=== PATIENT | female | born 1990 | race Caucasian/White ===

== ENCOUNTER 2020-10-08 17:48 | Inpatient (IN) | payer BC ==
[~2020-10-08] VITALS: Ht 165.1 cm; Wt 77.1 kg
[~2020-10-08 17:48] MED LIST: COLACE 100MG C100 MG PO; DITROPAN 5 MG TA5 MG PO; IBUPROFEN600 MG PO
[2020-10-08 20:48] LABS: HEMOGLOBIN 12.3 gm/dl (12.3-15.3); RED BLOOD COUNT 3.8 M/UL (4.00-5.10); WHITE BLOOD COUNT 8.2 K/UL (4.5-11.0)
[2020-10-08] MEDS ORDERED: LABETALOL HCL100 MG PO (21:07)
[2020-10-08] MEDS ORDERED: IRON325 M1 PO (21:09)
[2020-10-09] MEDS ORDERED: DOCUSATE SODIU100 MG PO (05:04)
[2020-10-09] MEDS ORDERED: IBUPROFEN600 MG PO (05:04)
== END 2020-10-10 13:19 | disposition home or self-care (01) | DRG 807 ==
LOC: GENOP 17:48 → OB 19:45
PROVIDERS: ADMIT Obstetrics & Gynecology
PROC: 4A1HXCZ Monitoring of Products of Conception, Cardiac Rate, External Approach (ICD-10-PCS; 2020-10-08)
PROC: 10E0XZZ Delivery of Products of Conception, External Approach (ICD-10-PCS; principal; 2020-10-09)
DX: O13.4 Gestational [pregnancy-induced] hypertension without significant proteinuria, complicating childbirth (principal); Z37.0 Single live birth; O76 Abnormality in fetal heart rate and rhythm complicating labor and delivery; Z3A.38 38 weeks gestation of pregnancy; Z20.822 Contact with and (suspected) exposure to COVID-19; Z87.440 Personal history of urinary (tract) infections; Z88.2 Allergy status to sulfonamides
CPT/HCPCS: 36415; 51702; 81001; 82800; 85014; 85018; 85025; 90715; J2590; J2795; J3010; U0002; U0003